=== PATIENT | female | born 1985 | race Caucasian/White ===

== ENCOUNTER 2017-12-08 08:16 | Emergency (ER) | payer OTHER ==
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
[2017-12-08] MEDS ORDERED: NS(*) 0.9% 1000 ML BAG 1,000 ML IV ONE (08:22)
[2017-12-08] MEDS: fentaNYL CITR 100 MCG/2 ML AMP IVP ONE ×2 (08:25→08:37)
[2017-12-08] MEDS ORDERED: ONDANSETRON 4 MG/2 ML VIAL IVP ONE (08:25)
[2017-12-08 08:42] LABS: PLATELET COUNT, AUTOMATED 272 K/uL (150-450)
[2017-12-08] MEDS ORDERED: KETOROLAC 15 MG/ML VIAL IVP ONE (08:45)
[2017-12-08] MEDS ORDERED: HYDROMORPHONE HCL 1 MG/ML SYRINGE IVP ONE (09:35)
--- NOTE | 2017-12-08 09:56 | RADIOLOGY IMAGING REPORT ---
FACILITY: [facility] [place] PATIENT NAME: Antonia Copeland : 1985 MR: [id number] V: [id number] EXAM DATE: [id number] ORDERING PHYSICIAN: AMOR HASKINS TECHNOLOGIST: Location: Patient: Antonia Copeland : 1985 Visit/Account:[id number] Date of Sevice: 12/08/2017 EXAMINATION: CT cervical spine without IV contrast HISTORY: Trauma. COMPARISON: None. TECHNIQUE: Axial images were obtained from the skull base through the upper thoracic spine without I V contrast administration. Coronal and sagittal reformatted images were obtained from the axial [facility] e data. One of the following dose optimization techniques was utilized in the performance of this exam: Autom ated exposure control; adjustment of the mA and/or kV according to the patient's size; or use of an i terative reconstruction technique. Specific details can be referenced in the facility's radiology C T exam operational policy. FINDINGS: Alignment: Straightening of the normal cervical alignment. Cranio-cervical junction: Negative. Vertebral bodies: Negative. Posterior elements: Negative. Hardware: None. Disc Spaces: Negative. Soft tissues: Negative. Visualized upper chest: Negative. IMPRESSION: 1. No acute fracture of the cervical spine. 2. Straightening of the normal cervical lordosis which is typically related to positioning and/or spa sm. Report Dictated By: aSm Carreon MD at 12/08/2017 9:50 AM Report E-Signed By: Sam Carreon MD at 12/08/2017 9:52 AM WSN:[id number]
--- NOTE | 2017-12-08 09:57 | RADIOLOGY IMAGING REPORT ---
FACILITY: [facility] PATIENT NAME: Antonia Copeland : 1985 MR: [id number] V: [id number] EXAM DATE: ORDERING PHYSICIAN: AMOR HASKINS TECHNOLOGIST: [place] [facility] [place] : 1985 Visit/Account:[id number] Date of Sevice: 12/08/2017 HIP RIGHT HISTORY: Trauma ADDITIONAL HISTORY: None. COMPARISON: None. FINDINGS: AP view of the pelvis and coned-down frog-leg view of the right hip was obtained. Conjoined spaces are well-maintained and are symmetric. There is no hip fracture identified. Pelvic r ing is intact. Symphysis and SI joints are of normal caliber. Pubic rami are intact. There is no obvi ous sacral fracture. Right femoral head is normal configuration. There is no flattening or sclerosis or abnormal subchondr al lucency. Visualized soft tissues are grossly unremarkable. IMPRESSION: No evidence of acute osseous abnormality in the pelvis or right hip. Report Dictated By: Alaina Pathak MD at 12/08/2017 9:51 AM Report E-Signed By: Alaina Pathak MD at 12/08/2017 9:53 AM WSN:[id number]
--- NOTE | 2017-12-08 09:58 | RADIOLOGY IMAGING REPORT ---
[place] [facility] [place] NAME: Antonia Copeland : 1985 MR: [id number] V: [id number] EXAM DATE: ORDERING PHYSICIAN: AMOR HASKINS TECHNOLOGIST: Location: [facility] Patient: Antonia Copeland : 1985 Visit/Account:[id number] Date of Sevice: 12/08/2017 KNEE 3 VIEW RIGHT HISTORY: Trauma ADDITIONAL HISTORY: None. COMPARISON: None. FINDINGS: 3 views were obtained of the right knee. Medial and lateral joint space compartments are well-maintai charlene. There are no significant osteophytes. Patellofemoral joint is of normal caliber. There is no fra cture or subluxation identified. There is no definite joint effusion. Bony mineralization is normal. There are no lytic or sclerotic lesions. IMPRESSION: No evidence of acute osseous abnormality in the right knee. Report Dictated By: Alaina Pathak MD at 12/08/2017 9:53 AM Report E-Signed By: Alaina Pathak MD at 12/08/2017 9:54 AM WSN:[id number]
[2017-12-08 10:00] VITALS: BP 136/87
[2017-12-08] MEDS ORDERED: CYCL10TA29 PO (10:16)
[2017-12-08] MEDS ORDERED: OXYC-865 PO (10:16)
== END 2017-12-08 10:35 | disposition home or self-care (01) ==
LOC: ER 08:20
DX: S83.91XA Sprain of unspecified site of right knee, initial encounter (principal); M62.838 Other muscle spasm; F41.9 Anxiety disorder, unspecified
CPT/HCPCS: 72125; 73502; 73562; 84703; 85025; 96361; 96374; 96375; 99284; J1170; J1885; J2405; J7030; 82040; 82247; 82310; 82374; 82435; 82565; 82947; 84075; 84132; 84155; 84295; 84450; 84460; 84520; J3010

== ENCOUNTER → 2017-12-08 | Outpatient (CLI) | payer OTHER ==
[~2017-12-08] MED LIST: CYCL10TA29 PO; OXYC-865 PO
== END ==
LOC: AMB 07:20
PROVIDERS: ATTEND Nurse Practitioner
DX: M79.661 Pain in right lower leg (principal); V48.6XXA Car passenger injured in noncollision transport accident in traffic accident, initial encounter
CPT/HCPCS: A0425; A0429